=== PATIENT | female | born 2005 | race African-American/Black ===

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

== ENCOUNTER 2024-03-29 09:41 | Emergency (ER) | payer OTHER ==
[~2024-03-29] VITALS: Ht 152.4 cm; Wt 136.0 kg
[~2024-03-29 09:41] MED LIST changes: +LOPRESSOR25 MG PO
[2024-03-29 09:56] VITALS: BP 144/97
[2024-03-29 10:00] VITALS: BP 115/72
[2024-03-29 10:27] VITALS: BP 115/72
== END 2024-03-29 10:37 | disposition home or self-care (01) ==
LOC: ED 09:41
DX: T81.31XA Disruption of external operation (surgical) wound, not elsewhere classified, initial encounter (principal); Y83.6 Removal of other organ (partial) (total) as the cause of abnormal reaction of the patient, or of later complication, without mention of misadventure at the time of the procedure

== ENCOUNTER 2024-04-30 20:26 | Emergency (ER) | payer OTHER ==
[~2024-04-30] VITALS: Ht 152.4 cm; Wt 140.0 kg
[2024-04-30] MEDS ORDERED: SODIUM CHLORIDE 0.9% 1,000 ML IV STA (22:18)
[2024-04-30] MEDS ORDERED: Pantoprazole Sodium 40 MG VIAL (Protonix) IV STA (22:18)
[2024-04-30] MEDS ORDERED: ONDANSETRON HCl 4 MG/2 ML SDV IV STA (22:18)
[2024-04-30] MEDS ORDERED: LIDOCAINE VISCOUS 2% 15 ML UDC PO ONE (22:20)
[2024-04-30] MEDS ORDERED: KETOROLAC TROMETHAMINE 30 MG/ML SDV IV ONE (22:20)
[2024-04-30] MEDS ORDERED: ALUM & MAG HYDROX-SIMETHICONE 30 ML PO ONE (22:20)
[2024-04-30 23:02] LABS: BASO% 0.6 % (0-3); EOS% 4.5 % (0-8); HEMATOCRIT 33.1 % (37.0-47.0); HEMOGLOBIN 9.7 g/dl (12.0-16.0); IMMATURE GRANULOCYTES 0.2 % (0.0-5.0); LYMPH% 33.6 % (15-41); MEAN CELL VOLUME 63.3 fL CALC (80.0-100.0); MEAN CORPUSCULAR HGB 18.5 pG CALC (26.0-32.0); MEAN CORPUSCULAR HGB CONC 29.3 g/dL CAL (32.0-36.0); MONO% 3.6 % (2-13); NEUT# 6.83 thou/uL (2.00-7.15); NEUT% 57.5 % (42-76); RED BLOOD COUNT 5.23 mill/uL (4.20-5.60); RED CELL DISTRI WIDTH 23.4 % (11.5-15.5)
[2024-04-30 23:19] LABS: BILIRUBIN, TOTAL 0.3 mg/dL (0.02-1.3); CREATININE 0.5 mg/dL (0.5-1.0); POTASSIUM 4.1 mmol/l (3.5-5.1); TOTAL PROTEIN 7.5 g/dL (6.3-8.2)
[2024-04-30] MEDS ORDERED: ONDANSETRON 4 MG/TAB ODT PO ONE (23:25)
[2024-04-30] MEDS ORDERED: PANTOPRAZOLE SODIUM Sesquihydr 40 MG/TAB PO ONE (23:25)
[2024-04-30 23:59] LABS: URINE BILIRUBIN - DIPSTICK Negative (NEGATIVE); URINE BLOOD DIPSTICK Negative (NEGATIVE); URINE GLUCOSE - DIPSTICK Negative (NEGATIVE); URINE KETONE Negative (NEGATIVE); URINE LEUK ESTERASE Negative (NEGATIVE); URINE NITRITE - DIPSTICK Negative (Negative); URINE PROTEIN - DIPSTICK Negative (NEG-TRACE); URINE UROBILINOGEN - DIPSTICK 0.2 E.U./dL (0.2)
[2024-05-01 00:15] LABS: URINE COLOR Yellow
[2024-05-01] MEDS ORDERED: PEPCID40 MG PO (00:22)
[2024-05-01 00:37] VITALS: BP 114/80
== END 2024-05-01 00:37 | disposition home or self-care (01) ==
LOC: ED 20:26
PROVIDERS: Family Medicine
DX: K29.70 Gastritis, unspecified, without bleeding (principal); Z90.49 Acquired absence of other specified parts of digestive tract
CPT/HCPCS: J2405; J2470